=== PATIENT | female | born 1985 | race Caucasian/White ===

== ENCOUNTER 2021-06-05 13:49 | Outpatient (REF) | payer OTHER, SELFPAY | END 2021-06-05 13:50 | disposition home or self-care (01) | LOC: HO.LNP 13:49 | PROVIDERS: Visit Provider Physician Assistant Medical | DX: N39.0 Urinary tract infection, site not specified (principal) | CPT/HCPCS: 87086; 87088; 87186 ==

== ENCOUNTER → 2021-09-12 13:09 | Outpatient (BNVA) | payer OTHER, SELFPAY | PROVIDERS: PCP Internal Medicine | DX: N39.0 Urinary tract infection, site not specified (principal); Z87.442 Personal history of urinary calculi | CPT/HCPCS: 99202 ==

== ENCOUNTER 2021-11-03 11:40 | Outpatient (REF) | payer OTHER, SELFPAY ==
--- NOTE | ~2021-11-03 | US_ITS ---
EXAMINATION: US RETROPERITONEAL LIMITED (RENAL ONLY) CLINICAL INFORMATION: Personal history of urinary calculi. COMPARISON: CT abdomen and pelvis without contrast 03/15/2017. TECHNIQUE: Real-time imaging of the kidneys. FINDINGS: RIGHT KIDNEY: 9.3 x 3.4 x 5.6 cm (SAG x AP x TRV). The kidney is normal in size, contour, and echogenicity. Renal cortical thickness is normal. No focal parenchymal lesions or hydronephrosis. There is an echogenic stone in midpole measuring 0.39 x 0.40 x 0.60 seen. LEFT KIDNEY: 9.8 x 5.1 x 5.6 cm (SAG x AP x TRV). The kidney is normal in size, contour, and echogenicity. Renal cortical thickness is normal. No focal parenchymal lesions or hydronephrosis. There is a nonobstructive echogenic calculi lower pole left kidney measuring 0.26 x 0.22 x 0.24 cm. US/US renal BI IMPRESSION: Bilateral nonobstructive echogenic renal calculi. No caliectasis or hydronephrosis seen.
== END 2021-11-03 11:41 | disposition home or self-care (01) ==
LOC: HO.HMGCX 11:40
PROVIDERS: PCP Internal Medicine
DX: Z87.442 Personal history of urinary calculi (principal)
CPT/HCPCS: 76775

== ENCOUNTER → 2021-11-10 11:00 | Outpatient (BNVA) | payer OTHER, SELFPAY | PROVIDERS: PCP Internal Medicine | DX: Z79.899 Other long term (current) drug therapy (principal) ==

== ENCOUNTER 2022-04-28 12:54 | Outpatient (REF) | payer OTHER, SELFPAY ==
--- NOTE | ~2022-04-28 | US_ITS ---
EXAMINATION: US RETROPERITONEAL LIMITED (RENAL ONLY) CLINICAL INFORMATION: Renal stones. COMPARISON: Ultrasound renal 11/03/2021. CT abdomen and pelvis 03/15/2017. TECHNIQUE: Real-time imaging of the kidneys. FINDINGS: RIGHT KIDNEY: 10.1 x 4.2 x 4.7 cm (SAG x AP x TRV). The kidney is normal in size, contour, and echogenicity. Renal cortical thickness is normal. No focal parenchymal lesions or hydronephrosis. The following 3 nonobstructing stones are present. At the time of the prior ultrasound only one stone was noted: 4 x 4 x 6 mm mid pole 2 x 2 x 2 mm mid pole 2 x 2 x 2 mm mid to lower pole LEFT KIDNEY: 9.4 x 5.2 x 5.0 cm (SAG x AP x TRV). The kidney is normal in size, contour, and echogenicity. Renal cortical thickness is normal. No focal parenchymal lesions or hydronephrosis. A 2 x 2 x 2 mm nonobstructing stone is seen at the lower pole. US/US renal BI IMPRESSION: Bilateral nonobstructing renal calculi. Slightly more stones are seen on the right than had been noted previously.
== END 2022-04-28 12:55 | disposition home or self-care (01) ==
LOC: HO.HMGCX 12:54
DX: Z87.442 Personal history of urinary calculi (principal)
CPT/HCPCS: 76775

== ENCOUNTER 2022-10-14 12:46 | Outpatient (REF) | payer OTHER, SELFPAY ==
--- NOTE | ~2022-10-14 | US_ITS ---
EXAMINATION: US RETROPERITONEAL LIMITED (RENAL ONLY) CLINICAL INFORMATION: Urinary calculi. COMPARISON: Ultrasound renal 04/28/2022 and 11/03/2021. TECHNIQUE: Real-time imaging of the kidneys. FINDINGS: RIGHT KIDNEY: 10.1 x 4.4 x 4.4 cm (SAG x AP x TRV). The kidney is normal in size, contour, and echogenicity. Renal cortical thickness is normal. No focal parenchymal lesions or hydronephrosis. 3 stones largest in the midpole measures 0.6 x 0.5 x 0.6 cm. There is mild pelvic fullness. LEFT KIDNEY: 10.3 x 6.2 x 4.6 cm (SAG x AP x TRV). The kidney is normal in size, contour, and echogenicity. Renal cortical thickness is normal. No calculi or focal parenchymal lesions. No hydronephrosis. Punctate echogenic foci without shadowing. US/US renal BI IMPRESSION: 3 nonobstructive echogenic stones largest in the midpole right kidney measuring 0.6 cm. There is mild pelvic fullness. These were noted on the previous exam 04/28/2022. Punctate echogenic foci, likely tiny calculi, in the left kidney without shadowing. There is no caliectasis or hydronephrosis in either kidney.
== END 2022-10-14 12:47 | disposition home or self-care (01) ==
LOC: HO.US 12:46
PROVIDERS: PCP Internal Medicine; Visit Provider Urology
DX: Z87.442 Personal history of urinary calculi (principal)
CPT/HCPCS: 76775

== ENCOUNTER 2025-02-10 13:42 | Emergency (ER) | payer OTHER, SELFPAY ==
[2025-02-10 13:46] VITALS: BP 110/70; PULSE 73; RESP 16; TEMP 36.5; O2SAT 100; BMI 21.4
--- NOTE | 2025-02-10 13:46 | ED_ITS ---
HPI - Dizziness General Chief Complaint: Dizziness Stated Complaint: dizziness Time Seen by Provider: 02/10/25 14:24 Source: patient and family ( father) Mode of arrival: ambulatory Limitations: no limitations History of Present Illness ED Provider: DR. Seay HPI Narrative: 39-year-old female presented with 2 month history of lightheadedness and dizziness. Patient work as a patient home furnishings sales representative, has been working many hours, patient admit that she does not hydrate and drink enough fluids. Otherwise no chest pain, no shortness of breath, no headache, no blurry vision, no weakness, no numbness, no abdominal pain, no nausea, no vomiting, no fever, no lower extremity weakness or swelling, no sick contacts, no recent travel. Related Data Previous Rx's ?Medication ?Instructions ?Recorded acyclovir 5 % topical ointment 1 appl topical 3XD 7 da ys #5 grams 03/24/22 (Zovirax) Allergies Allergy/AdvReac Type Severity Reaction Status Date / Time No Known Allergies (No Known Allergy Verified 02/10/25 13:47 Allergies*) Review of Systems 2 Review of Systems: All other systems are reviewed and are negative Constitutional: Reports as per HPI and Reports no additional constitutional complaints Eyes: Reports as per HPI and Reports no additional eye complaints Reports system reviewed and no additional complaints, except as documented Cardiovascular: Reports as per HPI and Reports no additional cardiovascular complaints Respiratory: Reports as per HPI and Reports no additional respiratory complaints Gastrointestinal: Reports as per HPI and Reports no additional gastrointestinal complaints Genitourinary: Reports no additional female genitourinary complaints Musculoskeletal: Reports no additional musculoskeletal complaints Skin/Breast: Reports system reviewed and no additional complaints, except as docu Psychiatric: Reports no additional psychiatric complaints Endocrine: Reports no additional endocrine complaints Hematologic/Lymphatic: Reports no additional hematologic/lymphatic complaints Allergic/Immunologic: Reports no additional allergic/immunologic complaints Reports system reviewed and no additional complaints, except as documented and Reports Abnormal speech present [facility] Past Medical History Medical History Hx of renal calculi Recurrent UTI Social History Social History Smoked in Last 30 Days: No Use of substances other than those prescribed or required for medical reasons: No Advance Directives: No Advance Directives Information Provided: Yes Patient : No Physical Exam 2 Vital Signs: Vital Signs: Last Vital Signs Temp 97.7 F 02/10/25 13:46 Pulse 80 02/10/25 14:13 Resp 16 02/10/25 13:46 BP 112/68 02/10/25 14:13 Pulse Ox 100 02/10/25 13:46 O2 Del Method Room Air 02/10/25 13:46 BMI result Body Mass Index 21.4 Vital signs have been reviewed and appear to be correct. Blood pressure elevated. Heart rate normal. Respiratory rate normal. Temperature normal. Oxygen saturation normal. Appearance: Alert. Oriented X3. No acute distress. Head: Normal external exam. Normocephalic. Atraumatic. No Callahan signs noted. No raccoon eyes noted Eyes: PERRLA. EOMI. Conjunctiva and sclera normal. Eyelids normal. ENT: TM's Normal. Pharynx normal. Uvula midline. Moist mucous membranes. No trismus noted. No drooling noted. No muffled voice noted. Neck: Normal inspection. Neck supple. FROM. No adenopathy. Thyroid Normal. No meningeal signs. No neck mass noted. CVS: Normal heart rate and rhythm. Heart sound normal. No murmurs noted. Pulses normal throughout. Respiratory: No respiratory distress. Painless inspiration. Breath sounds normal. No wheezes/rales/rhonchi noted. Chest nontender. No accessory muscle usage noted or decreased air movement noted. Abdomen: Soft and nontender. Bowel sounds normal in all 4 quadrants. No distention noted. No organomegaly noted. No visible injury noted. Back: No CVA tenderness. Full range of motion noted. Skin: Skin warm and dry. Normal skin color. Normal skin turgor. No rashes/lesions/lacerations noted. Extremities: No lower extremity edema. Extremities exhibit normal range of motion. Extremities nontender. Neuro: Mental status: Normal attention, orientation, memory, and affect. Cranial nerves: Pupils are equal, round and reactive to light, EOMI, visual mckeon are fall, face is symmetric, facial sensations are normal. Motor examination normal muscle tone, strength to 4 extremities. DTR are +2, planter's are flexor. Sensory exam; normal coordination, no ataxia, gait stable. Cerebellar exam: [id number] and [id number]-[id number] is normal. Extrapyramidal system: No tremors, no rigidity with normal facial expressions. Pronator drift not present NIH Stroke Scale Level of Consciousness: Alert Level of Consciousness Questions: Answers both questions correctly Level of Consciousness Commands: Performs both tasks correctly Best Gaze: Normal Visual: No visual loss Facial Palsy: Normal Motor Arm (Right): No drift Motor Arm (Left): No drift Motor Leg (Right): No drift Motor Leg (Left): No drift Limb Ataxia: Absent Sensory: Normal Best Language: No aphasia Dysarthia: Normal Extinction and Inattention: No abnormality Score: 0 Course Course Course Narrative: Wili Wei APRN This is a rapid medical exam. Deferred additional HPi, ROS, PE to primary provider. 39 yo female here with complaints of dizziness, nausea x months. Also with concern for UTI. Will obtain labs, UA VSS Reevaluation(s) Reevaluation #1: Two months of lightheadedness, unremarkable orthostatic vital signs, labs are unremarkable, Time: 15:14 Medical Decision Making Differential Diagnosis Differential Diagnoses: The differential diagnosis associated with the presentation includes ( dehydration, hypovolemia, electrolyte derangement, , UTI, dysrhythmia, ACS.) Admission/Observation Consideration of admission/observation: Escalation of care including admission/observation considered Lab Data MDM Lab Attestation statement: I reviewed the patient's lab results. 02/10/25 14:05 02/10/25 13:59 Labs: Lab Results 02/10/25 02/10/25 02/10/25 Range/Units 13:59 14:00 14:05 WBC 9.4 (4.8-10.8) X10*3/uL RBC 4.38 (4.20-5.50) X10*6/uL Hgb 12.8 (12.0-16.0) g/dl Hct 39.2 (37.0-47.0) % MCV 89.5 (80.0-98.0) fL MCH 29.2 (27.0-33.0) pg MCHC 32.7 (31.0-35.0) g/dl RDW 12.5 (11.0-16.0) % Plt Count 277 (160-400) X10*3/uL MPV 10.1 (9.4-12.3) fL Immature Gran % (Auto) 0.2 (0.0-0.4) % Neut % (Auto) 66.3 (45-73) % Lymph % (Auto) 23.1 (20-40) % Cameron % (Auto) 7.8 (2-11) % Eos % (Auto) 2.3 (0-4) % Baso % (Auto) 0.3 (0-2) % Lymph # (Auto) 2.2 (1.2-4.9) X10*3/uL Cameron # (Auto) 0.7 (0.1-1.2) X10*3/uL Eos # (Auto) 0.2 (0.0-0.4) X10*3/uL Baso # (Auto) 0.0 (0.0-0.2) X10*3/uL Abs Immat Gran (auto) 0.02 (0.00-0.03) X10*3/uL Absolute Neuts (auto) 6.2 (2.0-8.3) x10*3/uL Absolute Nucleated RBC 0.000 (0.0-0.012) X10*3/uL Nucleated RBC % (auto) 0.0 (0.0-0.2) /100WBC Sodium 140 (135-145) mmol/L Potassium 4.1 (3.3-5.1) mmol/L Chloride 107 (96-108) mmol/L Carbon Dioxide 25 (22-29) mmol/L Anion Gap 12 (12-20) BUN 18 H (9-16) mg/dL Creatinine 0.67 (0.5-1.4) mg/dL Estim Creat Clear Calc 86.7 Estimated GFR > 60 Random Glucose 104 (60-115) mg/dL Calcium 9.3 (8.4-10.2) mg/dL Urine Color Yellow Urine Appearance Clear Urine pH 6.5 (5.0-9.0) Ur Specific Orange 1.020 (1.005-1.025) Urine Protein Negative (Neg-Trace) mg/dL Urine Glucose (UA) Negative (Negative) mg/dL Urine Ketones Negative (Negative) mg/dL Urine Blood Moderate (2+) H (Negative) Urine Nitrite Negative (Negative) Ur Leukocyte Esterase Trace H (Negative) Urine RBC 11-20 H (0-2) /HPF Urine WBC 0-5 (0-5) /HPF Ur Squamous Epith Cells 6-10 (0-2) /HPF Urine Bacteria 1+ (None Seen) Hyaline Casts 0-2 (0-2) /LPF Urine Test NEGATIVE (NEGATIVE) Independent Interpretation I performed an independent interpretation of an: EKG ( normal sinus rhythm at 70 beats per minutes.) Discharge Plan Discharge Clinical Impression: Dizziness Patient Disposition: Home, Self-Care Instructions: Lightheadedness (ED) Additional Instructions: drink plenty of fluids and keep yourself hydrated Prescriptions: No Action acyclovir [Zovirax] 5 % ointment 1 appl topical 3XD 7 Days Qty: 5 0RF Print Language: Croatian
[2025-02-10 14:10] LABS: MANUAL DIFF FLAG NO
[2025-02-10 14:11] VITALS: BP 103/69; PULSE 74
[2025-02-10 14:12] VITALS: BP 114/65; PULSE 75
[2025-02-10 14:13] VITALS: BP 112/68; PULSE 80
[2025-02-10 14:13] LABS: Appearance Urine Clear; Color Urine Yellow; Glucose Urine UA Negative (Negative); Leukocyte Esterase Urine Trace (Negative); Nitrite Urine Negative (Negative); PH 6.5 (5.0-9.0); UMIC TRIGGER UACC YES; Urine Blood Moderate (2+) (Negative); Urine Ketones Negative (Negative); Urine Protein Negative (Neg-Trace)
[2025-02-10 14:16] LABS: Basophils Percent Auto 0.3 % (0-2); Eosinophils Absolute Auto 0.2 X10*3/uL (0.0-0.4); Eosinophils Percent Auto 2.3 % (0-4); Hematocrit 39.2 % (37.0-47.0); Hemoglobin 12.8 g/dl (12.0-16.0); Imm Gran Abs Auto 0.02 X10*3/uL (0.00-0.03); Imm Gran Pct Auto 0.2 % (0.0-0.4); Lymphocytes Absolute Auto 2.2 X10*3/uL (1.2-4.9); Lymphocytes Percent Auto 23.1 % (20-40); Mean Corpuscular HGB Conc 32.7 g/dl (31.0-35.0); Mean Corpuscular Hemoglobin 29.2 pg (27.0-33.0); Mean Corpuscular Volume 89.5 fL (80.0-98.0); Mean Platelet Volume 10.1 fL (9.4-12.3); Monocytes Absolute Auto 0.7 X10*3/uL (0.1-1.2); Monocytes Percent Auto 7.8 % (2-11); Neutrophils Absolute Auto 6.2 x10*3/uL (2.0-8.3); Neutrophils Percent Auto 66.3 % (45-73); Platelet Count 277 X10*3/uL (160-400); Red Blood Count 4.38 X10*6/uL (4.20-5.50); Red Cell Distribution Width 12.5 % (11.0-16.0); White Blood Count 9.4 X10*3/uL (4.8-10.8)
[2025-02-10 14:16] LABS: Bacteria Urine 1+ (None Seen); Hyaline Casts Urine 0-2 /LPF (0-2); WBC Urine 0-5 /HPF (0-5)
[2025-02-10 14:16] LABS: UPreg QC Valid YES; Urine Pregnancy NEGATIVE (NEGATIVE)
[2025-02-10 14:22] LABS: Anion Gap 12 (12-20); Blood Urea Nitrogen 18 mg/dL (9-16); Calcium 9.3 mg/dL (8.4-10.2); Carbon Dioxide 25 mmol/L (22-29); Chloride 107 mmol/L (96-108); Creatinine Clr Calc Pharmacy 86.7; Estimated Glomerular Filt Rate > 60; Glucose Random 104 mg/dL (60-115); Potassium 4.1 mmol/L (3.3-5.1); Sodium 140 mmol/L (135-145)
--- NOTE | 2025-02-10 15:14 | ECG_ITS ---
Test Reason : LIGHT HEADDNESS Blood Pressure : */* mmHG Vent. Rate : 70 BPM Atrial Rate : 70 BPM P-R Int : 154 ms QRS Dur : 84 ms QT Int : 400 ms P-R-T Axes : 58 73 58 degrees QTcB Int : 432 ms Normal sinus rhythm Minimal voltage criteria for LVH, may be normal variant ( Sokolow-Clemons ) Borderline ECG No previous ECGs available Referred By: Hermann Seay Electronically Signed By: EVON NETTLES
[2025-02-10 16:07] VITALS: BP 116/72; PULSE 77; RESP 16; TEMP 36.3; O2SAT 99
[2025-02-10 16:11] VITALS: BP 116/72; PULSE 77; RESP 16; TEMP 36.3; O2SAT 99
== END 2025-02-10 16:26 | disposition home or self-care (01) ==
PROVIDERS: Nurse Practitioner Family; Emergency Provider Emergency Medicine
DX: R42 Dizziness and giddiness (principal); R94.31 Abnormal electrocardiogram [ECG] [EKG]; Z79.899 Other long term (current) drug therapy
CPT/HCPCS: 36415; 80048; 81001; 81025; 85025; 93005; 99283; 99284

== ENCOUNTER → 2025-02-10 15:14 | Outpatient (BNV) | payer OTHER, SELFPAY | PROVIDERS: Emergency Provider Emergency Medicine; Visit Provider Internal Medicine | DX: R42 Dizziness and giddiness (principal) | CPT/HCPCS: 93010 ==

== ENCOUNTER 2025-03-01 09:37 | Emergency (ER) | payer OTHER, SELFPAY ==
--- NOTE | ~2025-03-01 | CT_ITS ---
EXAMINATION: CT ABDOMEN PELVIS WITH IV CONTRAST HISTORY: R flank pain, RLQ pain, LLQ pain, R CVA tenderness COMPARISON: Comparison is made with the prior examination dated 03/15/2017. TECHNIQUE: CT scan of the abdomen and pelvis was performed following administration of 85 mL Omnipaque 350 using standard departmental protocol. Coronal and sagittal reformatted images were generated and reviewed. Oral contrast material was not administered at the request of the referring physician. This CT exam was performed with one or more of the following dose reduction techniques: automated exposure control, adjustment of the mA and/or kV according to patient size, use of iterative reconstruction technique. DLP: 256 mGy-cm FINDINGS: LOWER CHEST: The visualized lung bases are clear. There is no pleural effusion. CARDIOVASCULATURE: The heart is normal in size. There is no pericardial effusion. LIVER: The liver is normal in size and contour. No liver mass is identified. The hepatic and portal veins are patent. GALLBLADDER / BILE DUCTS: The gallbladder is unremarkable. There is no intra or extrahepatic biliary ductal dilatation. SPLEEN: The spleen is normal in size. No focal splenic lesion is identified. PANCREAS: The pancreas is unremarkable in appearance. ADRENAL GLANDS: Within normal limits. KIDNEYS/RETROPERITONEUM: There is a 4 mm nonobstructing calculus in the midportion of the right kidney and a punctate nonobstructing calculus in the midportion of the left kidney.. There is no hydronephrosis. There is a 1.4 cm left renal cyst. LYMPH NODES: No abdominal or pelvic lymphadenopathy. VASCULATURE: The abdominal aorta is normal in caliber. MESENTERY/PERITONEUM: No free fluid. No masses. There is no free intraperitoneal gas. STOMACH: The stomach is collapsed, limiting evaluation. SMALL BOWEL: The small bowel is normal in caliber. COLON: There is a moderate to large amount of stool throughout the colon. APPENDIX: Normal. URINARY BLADDER/PELVIC ORGANS: There is slight wall thickening of the urinary bladder which could indicate cystitis. The patient is status post bilateral tubal ligation. There are multiple dilated venous structures in both adnexal regions, left greater than right, which could indicate pelvic congestion syndrome. BONES / SOFT TISSUES: No suspicious bony or soft tissue abnormalities. CT/CT abdomen pelvis w IV con IMPRESSION: 1. Moderate to large amount of stool throughout the colon. 2. Bilateral nephrolithiasis as described, without evidence of ureteral obstruction. 3. Slight wall thickening of the urinary bladder which could indicate cystitis. Correlation with urine culture is suggested. 4. Dilated venous structures in both adnexal regions which can be seen in the setting of pelvic congestion syndrome. Clinical correlation is recommended. Electronically signed by: Vel Mehta MD 03/01/2025 01:30 PM EDT
[2025-03-01 09:39] VITALS: BP 100/67; PULSE 85; RESP 18; TEMP 37.1; O2SAT 98; BMI 20.9
[2025-03-01 09:58] LABS: MANUAL DIFF FLAG NO
[2025-03-01 10:01] LABS: Appearance Urine Cloudy; Glucose Urine UA Negative (Negative); PH 7.0 (5.0-9.0); Specific Gravity - Urine 1.015 (1.005-1.025); UMIC TRIGGER UACC YES
[2025-03-01 10:02] LABS: Hematocrit 38.3 % (37.0-47.0); Hemoglobin 12.9 g/dl (12.0-16.0); Imm Gran Abs Auto 0.04 X10*3/uL (0.00-0.03); Imm Gran Pct Auto 0.3 % (0.0-0.4); Lymphocytes Absolute Auto 2.3 X10*3/uL (1.2-4.9); Mean Corpuscular HGB Conc 33.7 g/dl (31.0-35.0); Mean Corpuscular Hemoglobin 29.9 pg (27.0-33.0); Mean Corpuscular Volume 88.7 fL (80.0-98.0); NRBC Abs Auto 0.000 X10*3/uL (0.0-0.012); NRBC Pct Auto 0.0 /100WBC (0.0-0.2); Platelet Count 246 X10*3/uL (160-400); Red Blood Count 4.32 X10*6/uL (4.20-5.50); White Blood Count 13.5 X10*3/uL (4.8-10.8)
[2025-03-01 10:03] LABS: UACC Culture Trigger YES
[2025-03-01 10:05] LABS: UPreg QC Valid YES
--- NOTE | 2025-03-01 10:08 | ED_ITS ---
HPI - Female Genitourinary General Chief complaint: Urogenital-Female Stated complaint: low back pain, kidney pain Time Seen by Provider: 03/01/25 09:56 Source: patient and RN notes reviewed Mode of arrival: ambulatory Limitations: no limitations History of Present Illness ED Provider: Bell Machado PA-C HPI Narrative: This is a 39-year-old female, with a past medical history of renal calculi, and recurrent UTIs, who presents emergency department with concerns of right lower quadrant pain with associated dysuria, frequency, spasms at the end of her urine stream with the associated nausea. Patient reports that 2 days ago she developed urinary frequency. She states that yesterday she felt as though her abdomen was distended. She states that she took Tylenol for her symptoms which provided her some relief. She states that she awoke this morning at 4:00 a.m. with worsening abdominal pain, dysuria, had 1 episode of hematuria, in his now having right flank pain. She has a history of kidney stones and UTIs and symptoms feel similar. She admits that several weeks ago she felt as though she was having the start of urinary tract infection which she thought resolved after staying well hydrated. She denies any fevers, chills, chest pain, shortness for breath, does admit to having nausea, no vomiting. No diarrhea or constipation. No bloody or black stool. She is sexually active. No vaginal discharge or bleeding. No other complaints or concerns at this time. MD elicited complaint: dysuria and flank pain Vaginal discharge: none Vaginal bleeding: none Urinary symptoms: Dysuria, Urgency, Frequency and Hematuria Exacerbating factors: urination Relieving factors: none Associated symptoms: abdominal pain, loss of appetite and nausea Treatment prior to arrival: none Sexual activity: No Patient : No Related Data Previous Rx's ?Medication ?Instructions ?Recorded acyclovir 5 % topical ointment 1 appl topical 3XD 7 da ys #5 grams 03/24/22 (Zovirax) acetaminophen 500 mg tablet 500 mg PO Q6H PRN pain #30 tabs 03/01/25 (Tylenol Extra Strength) cefuroxime axetil 250 mg tablet 250 mg PO BID 7 days # 14 tabs 03/01/25 docusate calcium 240 mg capsule 240 mg PO DAILY #30 ca ps 03/01/25 ibuprofen 600 mg tablet 600 mg PO Q6H PRN pain #30 t abs 03/01/25 polyethylene glycol 3350 17 gram 17 g PO DAILY PRN con stipation #30 03/01/25 oral powder packet (Miralax) ea Allergies Allergy/AdvReac Type Severity Reaction Status Date / Time No Known Allergies (No Known Allergy Verified 03/01/25 09:42 Allergies*) Review of Systems 2 Review of Systems: Yes all other systems are reviewed and are negative Constitutional: Constitutional: Reports as per [facility] Past Medical History Medical History Hx of renal calculi Recurrent UTI Physical Exam 2 Vital Signs: Vital Signs: Last Vital Signs Temp 98.7 F 03/01/25 15:10 Pulse 85 03/01/25 15:10 Resp 18 03/01/25 15:10 BP 100/67 03/01/25 15:10 Pulse Ox 98 03/01/25 15:10 O2 Del Method Room Air 03/01/25 15:10 BMI result Body Mass Index 20.9 Const: General: cooperative, comfortable and no acute distress O rientation/consciousness: patient oriented x3 Limitations: no limitations HEENT: Head: Yes normal to inspection, Yes normocephalic and Yes atraumatic Ears: hearing grossly normal bilaterally General nose exam: Normal external nose present Face and sinus: Yes normal facial exam Mouth: Normal oral and palatal mucosa present, oropharynx normal and moist mucous membranes Throat: Yes posterior oropharynx normal Eyes: General: appearance normal, both eyes and all related structures E yelids: Yes eyelids normal Conjunctivae: conjunctivae normal Sclerae: s clerae normal Pupils: Equal, round and reactive pupils present EOM: EOMs intact bilaterally Neck: Neck: Yes normal visual inspection, Yes full ROM and Yes no lymphadenopathy Lymphatic: no lymphadenopathy noted Chest: Chest palpation & inspection: normal inspection of the chest Resp: Effort & Inspection: normal respiratory effort and able to speak in complete sentences Auscultation: clear to auscultation bilaterally, no crackles, no rales, no rhonchi and no wheezes Cardio: Rate: regular rate Rhythm: regular rhythm Heart sounds: S1 normal heart sound present and S2 normal heart sound present GI: Inspection: Yes normal to inspection Skin: General skin exam: no rashes or lesions noted Trauma: no lacerations or abrasions Wounds: no wounds Neuro: General: patient oriented x3 and moves all extremities Cranial nerves: Yes Equal, round and reactive pupils present Extrem: General: Yes normal to inspection Right upper extremity: normal to inspection Left upper extremity: normal to inspection Right lower extremity: normal to inspection Left lower extremity: normal to inspection Medications Administered Discontinued Medications Generic Name Dose Route Start Last Admin Trade Name Coltonq PRN Reason Stop Dose Admin Ceftriaxone Sodium 1 gm 03/01/25 10:18 03/01/25 10:49 Ceftriaxone Sodium 1 Gm Vial IVPUSH 03/01/25 10:19 1 gm ONCE ONE Administration Sodium Chloride 1,506 mls @ 1,506 mls/hr 03/01/25 10:18 03/01/25 12:29 Ns 30 ml/kg infuse over 1 hr (1506 ml) 03/01/25 11:17 Infused IV Infusion .Q1H STA Acetaminophen 1,000 mg in 100 mls @ 400 mls/hr 03/01/25 11:46 03/01/25 12:30 Ofirmev IV 03/01/25 12:00 Infused ONCE ONE Infusion Iohexol 100 ml 03/01/25 13:19 03/01/25 13:19 Iohexol 350 Mg/Ml 100 Ml Infus..Btl IV 03/01/25 13:20 85 ml ONCE ONE Administration Ketorolac Tromethamine 15 mg 03/01/25 10:18 03/01/25 10:49 Ketorolac Tromethamine 15 Mg/Ml Vial IVPUSH 03/01/25 10:19 15 mg ONCE ONE Administration Ondansetron HCl 4 mg 03/01/25 10:18 03/01/25 10:48 Ondansetron Hcl 4 Mg/2 Ml Vial IVPUSH 03/01/25 10:19 4 mg ONCE ONE Administration Medical Decision Making Medical Decision Making MDM Narrative: This is a 39-year-old female who presents emergency department with concerns of abdominal pain, nausea, and urinary symptoms. On arrival, vital signs within normal limits. She is well-appearing under no acute distress. Labs were obtained prior to my evaluation, she does have a leukocytosis noted at 13.5, with left shift, chemistry is pending at this time. UA revealing large blood, leuk esterase, greater than 20 rbc's, and greater than 50 urine wbc's, 6-10 squamous epithelial cells and 2+ urine bacteria. Patient's abdomen is soft, she does have tenderness palpation in the left lower quadrant as well as the right lower quadrant she does have a slight pain overlying the right flank. Given that this is not a straight forward renal colic case as she has had bloating, as well as left lower quadrant pain and right flank pain, will obtain CT abdomen pelvis with IV contrast. Will also medicate with IV antiemetics, IV pain medication, IV antibiotics, and IV fluids. We will continue to monitor pending overall workup. 1141 - patient re-evaluated, feeling much better after being medicated, awaiting CT scan. Chemistry did returned, she has no significant electrolyte derangement. 1339 - CAT scan returns, she has moderate to large amount of stool throughout the colon, bilateral nephrolithiasis without evidence of ureteral obstruction. She does have slight wall thickening of the urinary bladder which indicate cystitis. She also has dilated venous structures in both adnexal regions which can be found in the setting of pelvic congestion syndrome. Discussed overall workup with patient. Symptoms consistent with acute cystitis. Will treat with antibiotics. Given strict return precautions, Differential Diagnosis Differential Diagnoses: The differential diagnosis associated with the presentation includes Renal colic, pyelonephritis, appendicitis, diverticulitis, diverticulosis Admission/Observation Consideration of admission/observation: Escalation of care including admission/observation considered Lab Data MDM Lab Attestation statement: I reviewed the patient's lab results. 03/01/25 09:51 03/01/25 09:51 Labs: Lab Results 03/01/25 03/01/25 03/01/25 Range/Units 09:49 09:51 10:42 WBC 13.5 H (4.8-10.8) X10*3/uL RBC 4.32 (4.20-5.50) X10*6/uL Hgb 12.9 (12.0-16.0) g/dl Hct 38.3 (37.0-47.0) % MCV 88.7 (80.0-98.0) fL MCH 29.9 (27.0-33.0) pg MCHC 33.7 (31.0-35.0) g/dl RDW 12.5 (11.0-16.0) % Plt Count 246 (160-400) X10*3/uL MPV 10.1 (9.4-12.3) fL Immature Gran % (Auto) 0.3 (0.0-0.4) % Neut % (Auto) 71.0 (45-73) % Lymph % (Auto) 17.2 L (20-40) % [place] % (Auto) 9.4 (2-11) % Eos % (Auto) 1.9 (0-4) % Baso % (Auto) 0.2 (0-2) % Lymph # (Auto) 2.3 (1.2-4.9) X10*3/uL [place] # (Auto) 1.3 H (0.1-1.2) X10*3/uL Eos # (Auto) 0.3 (0.0-0.4) X10*3/uL Baso # (Auto) 0.0 (0.0-0.2) X10*3/uL Abs Immat Gran (auto) 0.04 H (0.00-0.03) X10*3/uL Absolute Neuts (auto) 9.5 H (2.0-8.3) x10*3/uL Absolute Nucleated RBC 0.000 (0.0-0.012) X10*3/uL Nucleated RBC % (auto) 0.0 (0.0-0.2) /100WBC Sodium 140 (135-145) mmol/L Potassium 4.0 (3.3-5.1) mmol/L Chloride 107 (96-108) mmol/L Carbon Dioxide 25 (22-29) mmol/L Anion Gap 12 (12-20) BUN 15 (9-16) mg/dL Creatinine 0.74 (0.5-1.4) mg/dL Estim Creat Clear Calc 78.5 Estimated GFR > 60 Random Glucose 86 (60-115) mg/dL Lactic Acid 0.8 (0.5-2.0) mmol/L Calcium 9.2 (8.4-10.2) mg/dL Total Bilirubin 0.4 (0.0-1.0) mg/dL AST 21 (5-31) U/L ALT 20 (0-31) U/L Alkaline Phosphatase 79 (39-117) U/L Total Protein 7.1 (6.5-8.0) g/dL Albumin 4.2 (3.5-5.0) g/dL Lipase 15 (8-78) U/L Urine Color Yellow Urine Appearance Cloudy Urine pH 7.0 (5.0-9.0) Ur Specific [place] 1.015 (1.005-1.025) Urine Protein 30 (1+) H (Neg-Trace) mg/dL Urine Glucose (UA) Negative (Negative) mg/dL Urine Ketones Negative (Negative) mg/dL Urine Blood Large (3+) H (Negative) Urine Nitrite Negative (Negative) Ur Leukocyte Esterase Large (3+) H (Negative) Urine RBC >20 H (0-2) /HPF Urine WBC >50 H (0-5) /HPF Ur Squamous Epith Cells 6-10 (0-2) /HPF Urine Bacteria 2+ (None Seen) Hyaline Casts 0-2 (0-2) /LPF Urine Test NEGATIVE (NEGATIVE) Ur N gonorrhoeae DNA (PCR) (Not Detect.) Ur Chlamydia DNA (PCR) (Not Detect.) 03/01/25 Range/Units 10:59 WBC (4.8-10.8) X10*3/uL RBC (4.20-5.50) X10*6/uL Hgb (12.0-16.0) g/dl Hct (37.0-47.0) % MCV (80.0-98.0) fL MCH (27.0-33.0) pg MCHC (31.0-35.0) g/dl RDW (11.0-16.0) % Plt Count (160-400) X10*3/uL MPV (9.4-12.3) fL Immature Gran % (Auto) (0.0-0.4) % Neut % (Auto) (45-73) % Lymph % (Auto) (20-40) % [place] % (Auto) (2-11) % Eos % (Auto) (0-4) % Baso % (Auto) (0-2) % Lymph # (Auto) (1.2-4.9) X10*3/uL [place] # (Auto) (0.1-1.2) X10*3/uL Eos # (Auto) (0.0-0.4) X10*3/uL Baso # (Auto) (0.0-0.2) X10*3/uL Abs Immat Gran (auto) (0.00-0.03) X10*3/uL Absolute Neuts (auto) (2.0-8.3) x10*3/uL Absolute Nucleated RBC (0.0-0.012) X10*3/uL Nucleated RBC % (auto) (0.0-0.2) /100WBC Sodium (135-145) mmol/L Potassium (3.3-5.1) mmol/L Chloride (96-108) mmol/L Carbon Dioxide (22-29) mmol/L Anion Gap (12-20) BUN (9-16) mg/dL Creatinine (0.5-1.4) mg/dL Estim Creat Clear Calc Estimated GFR Random Glucose (60-115) mg/dL Lactic Acid (0.5-2.0) mmol/L Calcium (8.4-10.2) mg/dL Total Bilirubin (0.0-1.0) mg/dL AST (5-31) U/L ALT (0-31) U/L Alkaline Phosphatase (39-117) U/L Total Protein (6.5-8.0) g/dL Albumin (3.5-5.0) g/dL Lipase (8-78) U/L Urine Color Urine Appearance Urine pH (5.0-9.0) Ur Specific [place] (1.005-1.025) Urine Protein (Neg-Trace) mg/dL Urine Glucose (UA) (Negative) mg/dL Urine Ketones (Negative) mg/dL Urine Blood (Negative) Urine Nitrite (Negative) Ur Leukocyte Esterase (Negative) Urine RBC (0-2) /HPF Urine WBC (0-5) /HPF Ur Squamous Epith Cells (0-2) /HPF Urine Bacteria (None Seen) Hyaline Casts (0-2) /LPF Urine Test (NEGATIVE) Ur N gonorrhoeae DNA (PCR) NOT DETECTED (Not Detect.) Ur Chlamydia DNA (PCR) NOT DETECTED (Not Detect.) Radiology Impression Discussion of test interpretation with radiology: I have reviewed the radiologist's reading. External Record Review External record reviewed: Inpatient record, Office record, Outpatient record, Prior outpatient labs, Prior outpatient radiology, Primary care record and Outside ED record Discharge Plan Discharge Clinical Impression: Acute cystitis, Female pelvic congestion syndrome, Constipation Patient Disposition: Home, Self-Care Instructions: Constipation (ED), Urinary Tract Infection in Women (ED), High Fiber Diet (ED) Additional Instructions: You were seen in the emergency department today. You were found to have a urinary tract infection. Your CT scan does show kidney stones on both of your kidneys however no location of the stone does not cause pain. You also have moderate to severe stool seen throughout your colon. Please take prescribed antibiotic to treat for your urinary tract infection. Take the full course even if your symptoms improve. Take MiraLax and docusate to help treat your constipation. Stop taking this if you develop diarrhea. You also have evidence of something called pelvic congestion syndrome, follow-up with an OBGYN. I have referred you to one, you may call them or follow-up with any OBGYN in the area. If any new or worsening symptoms occur including but not limited to high fevers, severe abdominal pain, inability to urinate, chest pain, shortness of breath, please seek emergent care. Prescriptions: New cefuroxime axetil 250 mg tablet 250 mg PO BID 7 Days Qty: 14 0RF polyethylene glycol 3350 [Miralax] 17 gram powder in packet 17 g PO DAILY PRN (Reason: constipation) Qty: 30 0RF docusate calcium 240 mg capsule 240 mg PO DAILY Qty: 30 0RF ibuprofen 600 mg tablet 600 mg PO Q6H PRN (Reason: pain) Qty: 30 0RF acetaminophen [Tylenol Extra Strength] 500 mg tablet 500 mg PO Q6H PRN (Reason: pain) Qty: 30 0RF No Action acyclovir [Zovirax] 5 % ointment 1 appl topical 3XD 7 Days Qty: 5 0RF Referrals: [facility] [place] [facility] [place] [facility] [place]Provider Group] Stand Alone Forms: Work/School Release Interventions: ED Discharge Assessment Last Done: 03/01/25 15:10 Discharge Date/Time: 03/01/25 15:10 Print Language: Irish
[2025-03-01 10:38] LABS: Alanine Aminotransferase 20 U/L (0-31); Albumin Level 4.2 g/dL (3.5-5.0); Alkaline Phosphatase 79 U/L (39-117); Anion Gap 12 (12-20); Aspartate Amino Transferase 21 U/L (5-31); Blood Urea Nitrogen 15 mg/dL (9-16); Calcium 9.2 mg/dL (8.4-10.2); Carbon Dioxide 25 mmol/L (22-29); Chloride 107 mmol/L (96-108); Creatinine Clr Calc Pharmacy 78.5; Estimated Glomerular Filt Rate > 60; Potassium 4.0 mmol/L (3.3-5.1); Sodium 140 mmol/L (135-145); Total Protein 7.1 g/dL (6.5-8.0)
[2025-03-01] MEDS: SODIUM CHLORIDE 1506 ML IV (10:49)
--- NOTE | 2025-03-01 11:09 | PC.NURSE ---
From home with complaints of lower abdominal pain x last 3 days reports has frequent UTI`s that spread to her kidneys if not treated early. 20g iv placed, medicated per oct. CT NG urine sent to lab
[2025-03-01 11:37] LABS: Lipase 15 U/L (8-78)
[2025-03-01 12:42] LABS: CT PCR Urine NOT DETECTED (Not Detect.); NG PCR Urine NOT DETECTED (Not Detect.)
[2025-03-01] MEDS: iohexoL 350 MG/ML 100 ML INFUS..BTL IV (13:19)
[2025-03-01 15:10] VITALS: BP 100/67; PULSE 85; RESP 18; TEMP 37.1; O2SAT 98
== END 2025-03-01 15:10 | disposition home or self-care (01) ==
PROVIDERS: Physician Assistant Medical; Emergency Provider Emergency Medicine
DX: N30.00 Acute cystitis without hematuria (principal); B95.8 Unspecified staphylococcus as the cause of diseases classified elsewhere; M54.50 Low back pain, unspecified; K59.00 Constipation, unspecified; R11.0 Nausea; N94.89 Other specified conditions associated with female genital organs and menstrual cycle; Z79.899 Other long term (current) drug therapy
CPT/HCPCS: 36415; 74177; 80053; 81001; 81025; 83605; 83690; 85025; 87040; 87086; 87088; 87186; 87491; 87591; 96361; 96374; 96375; 99284; J0131; J0696; J1885; J2405; Q9967

== ENCOUNTER → 2025-03-01 10:19 | Outpatient (BNV) | payer OTHER, SELFPAY | PROVIDERS: Emergency Provider Emergency Medicine; Visit Provider Radiology Diagnostic Radiology | DX: N20.0 Calculus of kidney (principal); N83.8 Other noninflammatory disorders of ovary, fallopian tube and broad ligament | CPT/HCPCS: 74177 ==